=== PATIENT | male | born 1985 | race Caucasian/White ===

== ENCOUNTER 2024-07-18 09:53 | Emergency (ER) | payer OTHER, SELFPAY ==
[2024-07-18 09:59] VITALS: BP 135/82; PULSE 85; RESP 18; TEMP 37.5; O2SAT 97
--- NOTE | 2024-07-18 10:20 | ED_ITS ---
HPI - Chest Pain General Date Seen: 07/18/24 Chief Complaint: Chest Pain Stated Complaint: Elevated BP, dizziness, headache Time Seen by Provider: 07/18/24 09:55 Source: patient Mode of arrival: ambulatory Limitations: no limitations History of Present Illness HPI narrative: All the symptoms started this morning. Patient is a 39-year-old male presenting to emergency department for complaints of chest pain, headache, dizziness. States the dizziness felt like a drunk sensation. Dizziness has improved but he still having the chest pain. Chest pain started about 01:30. Has been persis tent and feels like a sharp sensation. Symptoms are worse when he takes a deep breath and feels like he is unable to due to the pain. He has been evaluated for this 8 times prior and no abnormalities were seen. He has seen a measuring machine operator and has been told this heart looks fine. He denies fevers, chills,, abdominal pain, vomiting. Does have some mild nausea. Is also having a mild headache. He is in chemical dependency treatment and his last drink was 5 months ago. Has had some nausea but no vomiting. Is on Eliquis for previous blood clots. He is unsure with the clots were. No other concerns noted. Describes the pain as 9/10. Of note he states he has had headaches like this before and this feels just like his previous ones Related Data Home Medications ?Medication ?Instructions ?Recorded ?Confirmed apixaban 5 mg tablet (Eliquis) 5 mg PO BID 07/18/24 07/18/24 bupropion HCl 75 mg tablet 75 mg PO TID 07/18/24 07/18/24 Allergies Allergy/AdvReac Type Severity Reaction Status Date / Time No Known Drug Allergies Allergy Verified 07/18/24 10:10 Review of Systems Status of ROS Reports: 10 or more systems reviewed and unremarkable except as noted in History and below PFS PFS Social History Smoking Status: Former smoker Second hand tobacco smoke exposure: No How often do you have a drink containing alcohol: never How often do you have six or more drinks on one occasion: Never AUDIT-C Alcohol total score: 0 Non-prescribed substance use: denies use service: No Exam Narrative Exam Narrative: Const: Well-nourished, Well-developed, in mild distress Eyes: PERRL, no conjunctival injection, and symmetrical lids HENT: Atraumatic external nose and ears. Moist mucous membranes. Neck: Symmetric, trachea midline, No thyromegaly. CVS: RRR, No murmurs or gallops. Peripheral pulses 2+ and equal in all extremities RESP: Unlabored respiratory effort. Clear to auscultation bilaterally. GI: Nontender/Nondistended, No rebound or guarding. MSK:Extremities w/o deformity, Normal Active ROM, chest tenderness reproducible with palpation Skin: Warm, Dry. No rashes or lesions. Neuro: Normal Muscle tone, No focal neurological deficits. Psych: Awake, Alert, & Oriented x3. Appropriate mood and affect. Const Vital Signs, click to edit/add: Vital Signs - 24 hr 07/18/24 09:59 Temperature 99.5 F Pulse Rate [Right Pulse Oximeter] 85 Respiratory Rate 18 Blood Pressure [Right Upper Arm] 135/82 Pulse Oximetry 97 Oxygen Delivery Method Room Air Course Vital Signs Vital signs: Initial Vital Signs Temperature 99.5 F 07/18/24 09:59 Temperature Source Temporal Artery Scan 07/18/24 09:59 Pulse Rate 85 07/18/24 09:59 Pulse Rhythm Regular 07/18/24 09:59 Pulse Strength 3+ Normal 07/18/24 09:59 Respiratory Rate 18 07/18/24 09:59 Blood Pressure 135/82 07/18/24 09:59 Blood Pressure Mean 99 07/18/24 09:59 Blood Pressure Position Sitting 07/18/24 09:59 Pulse Oximetry 97 07/18/24 09:59 Oxygen Delivery Method Room Air 07/18/24 09:59 Vital Signs Temperature 99.5 F 07/18/24 09:59 Pulse Rate 85 07/18/24 09:59 Respiratory Rate 18 07/18/24 09:59 Blood Pressure 135/82 07/18/24 09:59 Pulse Oximetry 97 07/18/24 09:59 Oxygen Delivery Method Room Air 07/18/24 09:59 Temperature 99.5 F 07/18/24 09:59 Pulse Rate 85 07/18/24 09:59 Respiratory Rate 18 07/18/24 09:59 Blood Pressure 135/82 07/18/24 09:59 Pulse Oximetry 97 07/18/24 09:59 Oxygen Delivery Method Room Air 07/18/24 09:59 MDM - Chest Pain MDM Narrative Medical decision making narrative: Patient is a 39-year-old male presenting for chest pain. The differential diagnosis of chest pain is broad and includes common etiologies such as musculoskeletal strain, GERD, pneumonia, etc. More serious etiologies considered include PE, coronary artery disease, pneumothorax, aortic dissection, aortic aneurysm. Will order EKG, troponin to look for signs of ACS. Also order CBC and BMP. He does have a history of blood clots he states which he takes Eliquis for. Will order a CTA to better rule out any further blood clots. This also rule out pneumonia or pneumothorax. With otherwise stable vital signs aortic dissection aortic aneurysm seem unlikely. He does have chest pain reproducible with palpation which means this is likely musculoskeletal in nature. He has had headaches like this before also and I do not believe further imaging of the brain is necessary. CBC, CMP, EKG, troponin showed no concerning findings. Will repeat troponin. CTA reviewed by myself and the radiologist showed no acute concerning abnormalities. Patient's symptoms were improved after the Toradol. Repeat troponin also within normal limits. At This time I am fairly confident this is I chest wall pain. On my review vital signs are stable throughout time in in the emergency department. Oximetry stayed in the mid to high 90s. property assessment monitor showed no concerning arrhythmias. He is safe for discharge. He is agreeable to this plan. Lab Data Labs: Lab Results 07/18/24 07/18/24 07/18/24 Range/Units 10:20 10:25 13:01 WBC 6.60 (4.50-11.00) K/uL RBC 6.33 H (4.30-5.90) m/uL Hgb 13.8 (13.5-17.5) gm/dL Hct 42.3 (37.0-53.0) % MCV 67 L (80-100) fL MCH 22 L (26-34) pg MCHC 33 (32-36) gm/dL RDW Coeff of Elizabeth 16.8 H (11.5-15.5) % Plt Count 198 (140-440) K/uL Neut % (Auto) 45.8 (42.0-72.0) % Lymph % (Auto) 27.4 (20-44) % Taney % (Auto) 13.0 H (0.0-11.0) % Eos % (Auto) 12.3 H (0.0-7.0) % Baso % (Auto) 0.6 (0.0-3.0) % Neut # (Auto) 3.02 (1.7-7.0) K/uL Lymph # (Auto) 1.81 (0.90-2.90) K/uL Taney # (Auto) 0.90 (0.00-0.90) K/UL Eos # (Auto) 0.80 H (0.00-0.50) K/uL Baso # (Auto) 0.04 (0.00-0.30) K/uL Abs Immat Gran (auto) 0.06 (0.00-0.30) K/uL Imm/Tot Granulo (auto) 0.9 % Sodium 136 (135-149) mmol/L Potassium 3.8 (3.6-5.1) mmol/L Chloride 105 (96-114) mmol/L Carbon Dioxide 24 (20-32) mmol/L Anion Gap 7 (7-15) mEq/L BUN 17 (5-24) mg/dL Creatinine 0.9 (0.5-1.5) mg/dL Estimated Creat Clear 93.19 Estimated GFR 112 ml/min Glucose 90 (60-115) mg/dL Calcium 9.3 (8.4-10.6) mg/dL POC Troponin I 0.01 0.00 L (0.01-0.04) ng/ml Imaging Data CTA chest: Attestation: I have reviewed the pertinent imaging results. Radiologist's impression: Normal exam. No pulmonary embolus. Please note that all CT scans at this facility use dose modulation, iterative reconstruction, and/or weight-based dosing when appropriate to reduce radiation dose to as low as reasonably achievable. Dictated by Akanksha Ackerman MD @ 07/18/2024 11:01:30 AM Discharge Plan Discharge Clinical Impression: Anterior chest wall pain Patient Disposition: Home, Self-Care Condition: Stable Instructions: Chest Wall Pain (ED) Additional Instructions: Follow-up the primary care provider if symptoms persist. Take Tylenol ibuprofen pain. Return for new or worsening symptoms. Prescriptions: No Action Eliquis 5 mg tablet 5 mg PO BID bupropion HCl 75 mg tablet 75 mg PO TID Rx Instructions: administer 6 hours apart Follow Up/Referrals: Provider,Not a Local [Primary Care Provider] - Stand Alone Forms: MyHealth Info Instructions
--- NOTE | 2024-07-18 10:25 | CRLHL7_ITS ---
For Patients: As a result of the Century Cures Act, medical imaging exams and procedure reports are released immediately into your electronic medical record. You may view this report before your referring provider. If you have questions, please contact your health care provider. INDICATION: Chest pain, history of blood clots. COMPARISON: None. TECHNIQUE: CT angiogram chest with contrast, pulmonary embolism protocol. Multiplanar axial, coronal, and sagittal reformats are included. MIP images to improve detection of pulmonary emboli are included. Intravenous contrast: 95 mL Isovue 370. FINDINGS: PE: Well-timed contrast bolus. No pulmonary emboli. Normal caliber main pulmonary artery. Normal sized right heart chambers. No reflux of contrast below the diaphragm. Airway: Normal tracheobronchial tree. Lungs: No nodules or masses. No consolidations. Normal appearance of the pulmonary interstitium. Pleura: No pleural effusion. No pneumothorax. Lymph nodes: No thoracic adenopathy. Mediastinum: No pneumomediastinum. No mass. Heart and great vessels: No pericardial effusion. Normal cardiac chamber size. No calcified atherosclerotic plaques. No aortic aneurysm. Chest wall: Normal. No masses. Upper abdomen: Normal. Bones: No fractures. No focal bone lesions. IMPRESSION: Normal exam. No pulmonary embolus. Please note that all CT scans at this facility use dose modulation, iterative reconstruction, and/or weight-based dosing when appropriate to reduce radiation dose to as low as reasonably achievable. Dictated by Akanksha Ackerman MD @ 07/18/2024 11:01:30 AM (Electronically Signed)
[2024-07-18 10:35] LABS: Basophils Absolute Auto 0.04 K/uL (0.00-0.30); Basophils Percent Auto 0.6 % (0.0-3.0); Eosinophils Percent Auto 12.3 % (0.0-7.0); Hematocrit 42.3 % (37.0-53.0); Hemoglobin* 13.8 gm/dL (13.5-17.5); Immature Granulocytes Abs Auto 0.06 K/uL (0.00-0.30); Immature Granulocytes Pct Auto 0.9 %; Lymphocytes Absolute Auto 1.81 K/uL (0.90-2.90); Lymphocytes Percent Auto 27.4 % (20-44); Mean Corpuscular HGB Conc 33 gm/dL (32-36); Mean Corpuscular Hemoglobin 22 pg (26-34); Mean Corpuscular Volume 67 fL (80-100); Neutrophils Absolute Auto 3.02 K/uL (1.7-7.0); Neutrophils Percent Auto 45.8 % (42.0-72.0); Platelet Count* 198 K/uL (140-440); RDW Coefficient of Variation % 16.8 % (11.5-15.5); Red Blood Count 6.33 m/uL (4.30-5.90)
[2024-07-18 10:40] LABS: Troponin, Point-of-Care* 0.01 ng/ml (0.01-0.04)
[2024-07-18 10:47] LABS: Chloride* 105 mmol/L (96-114); Potassium* 3.8 mmol/L (3.6-5.1); Sodium* 136 mmol/L (135-149)
[2024-07-18 10:50] LABS: Anion Gap 7 mEq/L (7-15); Blood Urea Nitrogen* 17 mg/dL (5-24); Carbon Dioxide* 24 mmol/L (20-32); Creatinine* 0.9 mg/dL (0.5-1.5); Est. Creatinine Clearance* 93.19; Estimated Glomerular Filt Rate 112 ml/min; Glucose* 90 mg/dL (60-115)
[2024-07-18 10:51] LABS: Calcium* 9.3 mg/dL (8.4-10.6)
[2024-07-18 10:54] LABS: Slide Review Reflex No
[2024-07-18 13:00] VITALS: BP 128/86; PULSE 97; RESP 18; O2SAT 97
== END 2024-07-18 14:21 | disposition home or self-care (01) ==
PROVIDERS: Emergency Provider Student in an Organized Health Care Education/Training Program
DX: R07.89 Other chest pain (principal)
CPT/HCPCS: 36415; 71275; 80048; 84484; 85025; 93005; 96374; 99284; 99285; Q9967

== ENCOUNTER 2024-07-25 20:44 | Outpatient (CLI) | payer OTHER, SELFPAY | END 2024-07-25 20:45 | disposition home or self-care (01) | LOC: AMB 08-03 07:47 | PROVIDERS: Visit Provider Family Medicine | DX: R07.89 Other chest pain (principal) | CPT/HCPCS: A0425; A0427 ==

== ENCOUNTER 2024-07-25 21:20 | Emergency (ER) | payer OTHER, SELFPAY ==
[2024-07-25] VITALS (10 sets, daily range): BP systolic 147; BP diastolic 100; PULSE 76–87; RESP 16; TEMP 36.8; O2SAT 94–99; BMI 37.2
--- NOTE | 2024-07-25 21:29 | CRLHL7_ITS ---
For Patients: As a result of the Century Cures Act, medical imaging exams and procedure reports are released immediately into your electronic medical record. You may view this report before your referring provider. If you have questions, please contact your health care provider. INDICATION: CP. HX OF DE AT AGE 26. TECHNIQUE: Chest 1 views. COMPARISON: None. FINDINGS: Cardiovascular and mediastinum: Cardiomediastinal silhouette is within normal limits. Lungs and pleural spaces: Mild perihilar interstitial opacities. No sign of pleural effusion. No pneumothorax. Bones and soft tissues: No significant findings. IMPRESSION: Mild perihilar interstitial opacities may reflect viral illness or airways disease.. Dictated by Edgar Junior MD @ 07/25/2024 10:36:35 PM (Electronically Signed)
--- NOTE | 2024-07-25 21:30 | ED_ITS ---
HPI - Chest Pain General Chief Complaint: Chest Pain Stated Complaint: Chest Pain Time Seen by Provider: 07/25/24 21:23 History of Present Illness HPI narrative: Patient is a 39-year-old gentleman who is in a drug treatment facility rehab unit here in [place]. He is not use any drugs for 4 months but developed chest pain when he was visiting with a friend [place] approximated hour ago. Patient tells me the a heart attack at age 26. Patient is not certain about his past medical history otherwise. His medications include Eliquis 5 mg b.i.d. and be propria and 75 mg t.i.d.. He states the pain was in the anterior chest and he was feeling ?Giddy?. Patient is feeling better now on less anxious. EKG done upon arrival upon my review shows no acute abnormalities. Related Data Home Medications ?Medication ?Instructions ?Recorded ?Confirmed apixaban 5 mg tablet (Eliquis) 5 mg PO BID 07/18/24 07/18/24 bupropion HCl 75 mg tablet 75 mg PO TID 07/18/24 07/18/24 Allergies Allergy/AdvReac Type Severity Reaction Status Date / Time No Known Drug Allergies Allergy Verified 07/18/24 10:10 Review of Systems Status of ROS Reports: 10 or more systems reviewed and unremarkable except as noted in History and below PFSH PFSH Social History Smoking Status: Former smoker Second hand tobacco smoke exposure: No How often do you have a drink containing alcohol: never How often do you have six or more drinks on one occasion: Never AUDIT-C Alcohol total score: 0 Non-prescribed substance use: denies use service: No Exam Narrative Exam Narrative: EXAM GENERAL: Patient appears comfortable and well. EYES: No scleral icterus. ENT: Tympanic membranes and oropharynx normal. THYROID: no thyroid nodules or thyromegaly. LYMPH: No supraclavicular or cervical lymphadenopathy. SKIN: Visible skin seen during exam normal or with benign process only. EXT: No dependent lower extremity pedal edema. HEART: Regular rate and rhythm with no murmurs, rubs, or gallops. LUNGS: Clear to auscultation bilaterally with no crackles or wheezes. ABD: Soft, non tender, non distended. PSYCH: Good eye contact, speech is not pressured. Const Vital Signs, click to edit/add: Vital Signs - 24 hr 07/25/24 21:22 07/25/24 21:26 07/25/24 21:27 Temperature 98.2 F Pulse Rate 85 76 Respiratory Rate 16 Blood Pressure 147/100 H Blood Pressure [Right Upper Arm] 147/100 H Pulse Oximetry 99 97 98 Oxygen Delivery Method Room Air 07/25/24 21:30 07/25/24 21:45 07/25/24 22:00 Temperature Pulse Rate 79 83 81 Respiratory Rate Blood Pressure Blood Pressure [Right Upper Arm] Pulse Oximetry 95 96 95 Oxygen Delivery Method 07/25/24 22:15 07/25/24 22:30 07/25/24 22:45 Temperature Pulse Rate 87 84 85 Respiratory Rate Blood Pressure Blood Pressure [Right Upper Arm] Pulse Oximetry 95 95 94 Oxygen Delivery Method 07/25/24 23:00 Temperature Pulse Rate 84 Respiratory Rate Blood Pressure Blood Pressure [Right Upper Arm] Pulse Oximetry 95 Oxygen Delivery Method Course Course ED Course: EKG reviewed. Portable chest x-ray troponin D-dimer CBC basic metabolic panel pending. Vital Signs Vital signs: Initial Vital Signs Temperature 98.2 F 07/25/24 21:22 Temperature Source Temporal Artery Scan 07/25/24 21:22 Respiratory Rate 16 07/25/24 21:22 Respiratory Effort Normal 07/25/24 21:22 Respiratory Depth Normal 07/25/24 21:22 Respiratory Pattern Normal 07/25/24 21:22 Blood Pressure 147/100 H 07/25/24 21:22 Blood Pressure Mean 115 H 07/25/24 21:22 Blood Pressure Position Supine 07/25/24 21:22 Pulse Oximetry 99 07/25/24 21:22 Oxygen Delivery Method Room Air 07/25/24 21:22 Vital Signs Temperature 98.2 F 07/25/24 21:22 Respiratory Rate 16 07/25/24 21:22 Blood Pressure 147/100 H 07/25/24 21:22 Pulse Oximetry 99 07/25/24 21:22 Oxygen Delivery Method Room Air 07/25/24 21:22 Temperature 98.2 F 07/25/24 21:22 Pulse Rate 84 07/25/24 23:00 Respiratory Rate 16 07/25/24 21:22 Blood Pressure 147/100 H 07/25/24 21:27 Pulse Oximetry 95 07/25/24 23:00 Oxygen Delivery Method Room Air 07/25/24 21:22 MDM - Chest Pain MDM Narrative Medical decision making narrative: Patient is a 39-year-old gentleman who presents with chest pain. EKG done upon arrival with the patient actively having chest pain is stone cold normal. His troponin is negative x2 at 90 minute intervals. He does have microcytosis on his cbc which I suspect is chronic. Electrolytes are otherwise unremarkable D- dimer is essentially negative. This point differential diagnosis includes but not limited to unstable angina acute myocardial infarction anxiety panic attack pneumonia pulmonary embolism pneumothorax. Chest x-ray is unremarkable. I did offer reassurance he will continue current medications follow-up with his primary physician as needed. Lab Data Labs: Lab Results 07/25/24 07/25/24 07/25/24 Range/Units 19:32 22:01 22:53 WBC 7.76 (4.50-11.00) K/uL RBC 6.40 H (4.30-5.90) m/uL Hgb 13.9 (13.5-17.5) gm/dL Hct 42.9 (37.0-53.0) % MCV 67 L (80-100) fL MCH 22 L (26-34) pg MCHC 32 (32-36) gm/dL RDW Coeff of Elizabeth 17.0 H (11.5-15.5) % Plt Count 218 (140-440) K/uL Neut % (Auto) 50.7 (42.0-72.0) % Lymph % (Auto) 26.9 (20-44) % Walsh % (Auto) 11.9 H (0.0-11.0) % Eos % (Auto) 9.3 H (0.0-7.0) % Baso % (Auto) 0.4 (0.0-3.0) % Neut # (Auto) 3.94 (1.7-7.0) K/uL Lymph # (Auto) 2.09 (0.90-2.90) K/uL Walsh # (Auto) 0.90 (0.00-0.90) K/UL Eos # (Auto) 0.70 H (0.00-0.50) K/uL Baso # (Auto) 0.03 (0.00-0.30) K/uL Abs Immat Gran (auto) 0.06 (0.00-0.30) K/uL Imm/Tot Granulo (auto) 0.8 % D-Dimer Quant (PE/DVT) 0.68 H (0.00-0.50) ug/ml Sodium 139 (135-149) mmol/L Potassium 3.8 (3.6-5.1) mmol/L Chloride 106 (96-114) mmol/L Carbon Dioxide 25 (20-32) mmol/L Anion Gap 8 (7-15) mEq/L BUN 14 (5-24) mg/dL Creatinine 1.0 (0.5-1.5) mg/dL Estimated Creat Clear 80.61 Estimated GFR 99 ml/min Glucose 128 H (60-115) mg/dL Calcium 8.8 (8.4-10.6) mg/dL Troponin I < 0.01 L (0.01-0.04) ng/mL POC Troponin I 0.03 0.01 (0.01-0.04) ng/ml Discharge Plan Discharge Clinical Impression: Chest pain Patient Disposition: Home, Self-Care Condition: Stable Instructions: Chest Pain (ED) Additional Instructions: Continue current medication Monitor symptoms Follow-up with your doctor as needed. Activity Level: No Restrictions Discharge Diet: Regular Prescriptions: No Action Eliquis 5 mg tablet 5 mg PO BID bupropion HCl 75 mg tablet 75 mg PO TID Rx Instructions: administer 6 hours apart Follow Up/Referrals: Provider,Not a Local [Primary Care Provider] - Stand Alone Forms: MyHealth Info Instructions
[2024-07-25 21:46] LABS: Basophils Absolute Auto 0.03 K/uL (0.00-0.30); Basophils Percent Auto 0.4 % (0.0-3.0); Eosinophils Percent Auto 9.3 % (0.0-7.0); Hematocrit 42.9 % (37.0-53.0); Hemoglobin* 13.9 gm/dL (13.5-17.5); Immature Granulocytes Abs Auto 0.06 K/uL (0.00-0.30); Immature Granulocytes Pct Auto 0.8 %; Lymphocytes Absolute Auto 2.09 K/uL (0.90-2.90); Lymphocytes Percent Auto 26.9 % (20-44); Mean Corpuscular HGB Conc 32 gm/dL (32-36); Mean Corpuscular Hemoglobin 22 pg (26-34); Mean Corpuscular Volume 67 fL (80-100); Monocytes Percent Auto 11.9 % (0.0-11.0); Neutrophils Absolute Auto 3.94 K/uL (1.7-7.0); Neutrophils Percent Auto 50.7 % (42.0-72.0); Platelet Count* 218 K/uL (140-440); White Blood Count* 7.76 K/uL (4.50-11.00)
[2024-07-25 22:02] LABS: Troponin, Point-of-Care* 0.03 ng/ml (0.01-0.04)
[2024-07-25 22:04] LABS: Slide Review Reflex No
[2024-07-25 22:18] LABS: Chloride* 106 mmol/L (96-114); Potassium* 3.8 mmol/L (3.6-5.1); Sodium* 139 mmol/L (135-149)
[2024-07-25 22:21] LABS: Anion Gap 8 mEq/L (7-15); Blood Urea Nitrogen* 14 mg/dL (5-24); Calcium* 8.8 mg/dL (8.4-10.6); Carbon Dioxide* 25 mmol/L (20-32); Est. Creatinine Clearance* 80.61; Estimated Glomerular Filt Rate 99 ml/min; Glucose* 128 mg/dL (60-115)
[2024-07-25 22:33] LABS: Troponin I* < 0.01 ng/mL (0.01-0.04)
[2024-07-25 22:53] LABS: D Dimer Quantitative* 0.68 ug/ml (0.00-0.50)
[2024-07-25 23:20] LABS: Troponin, Point-of-Care* 0.01 ng/ml (0.01-0.04)
== END 2024-07-25 23:49 | disposition home or self-care (01) ==
PROVIDERS: Emergency Provider Internal Medicine
DX: R07.9 Chest pain, unspecified (principal)
CPT/HCPCS: 36415; 71045; 80048; 84484; 85025; 85379; 99283; 99284